=== PATIENT | male | born 1935 | race Caucasian/White ===

== ENCOUNTER 2016-10-28 20:22 | Emergency (ER) | payer MEDICARE, BC ==
[~2016-10-28 20:22] MED LIST: ACETAMINOPHEN1 EAC1 PO; ACETAMINOPHEN500 M2 PO; ALDACTONE25 M1 PO; ALEVE PM CAPLE1 EACH PO; AMOXICILLIN500 M1 PO; ARTHROTEC 75 MG1 TAB PO; ARTHROTEC PO; ASPIRIN EC81 MG PO; ASPIRIN81 M1 PO; B COMPLEX WITH1 EAC2 PO; CALCIUM 600 +1 EAC5 PO; CALCIUM500 M3 PO; CALCIUM600 MG PO; CALTRATE 600 +1 EAC2 PO; CELEBREX200 M1 PO; CHOLECALCIFEROL1 GM PO; COREG25 M1 PO; COREG25 MG PO; COZAAR100 M1 PO; CPAP; DAILY MULTIVIT1 EAC5 PO; ELIQUIS2.5 M1 PO; FENOFIBRATE PO; FENOFIBRATE67 MG PO; FUROSEMIDE20 M1 PO; FUROSEMIDE40 M1 PO; FUROSEMIDE40 M2 PO; GAS RELIEF125 M4 PO; GLYCOTROL PO; HYZAAR 100-25 T1 TAB PO; HYZAAR 100-251 EACH PO; KLOR-CON 1010 ME1 PO; LASIX20 M1 PO; LASIX40 M1 PO; LEVOTHYROXINE112 MC3 PO; LEVOTHYROXINE50 MC3 PO; LEVOXYL50 MCG PO; MELATONIN PO; MELATONIN1 M2 PO; MILK OF MAGNESIA PO; NEURONTIN100 M1 PO; NORCO 5-325 TA1 EACH PO; NORCO 5/325 TAB1 TAB PO; OMEPRAZOLE20 M2 PO; OMEPRAZOLE20 M3 PO; OXYCODONE HCL5 M1 PO; PAIN PUMP; POTASSIUM CHLO10 ME2 PO; POTASSIUM CHLO10 MEQ PO; POTASSIUM CHLO20 ME3 PO; PRIALT; ROXICODONE5 M2 PO; SENNA PLUS TAB1 EAC1 PO; SENOKOT-S TABL1 EACH PO; SENOKOT-S TABLE1 TAB PO; SIMVASTATIN40 M1 PO; SIMVASTATIN40 MG PO; TOPROL XL25 M1 PO; TORSEMIDE100 M1 PO; TUMS ULTRA400 MG PO; TUMS500 M1 PO; TYLENOL EXTRA500 M1 PO; TYLENOL PM EX-1 EAC4 PO; TYLENOL TA325 MG/TAB PO; TYLENOL325 M2 PO; ULTRAM50 M1 PO; VITAMIN B-1100 M3 PO; VITAMIN B-12500 MC5 SL; VITAMIN D32000 UNI2 PO; XARELTO10 MG PO
[2016-10-28 21:48] LABS: BASO % 0.2 % (0-2); EOS % 3.5 % (0-7); EOSINOPHIL ABSOLUTE COUNT 0.2 tho/cmm (0.0-0.7); HCT-HEMATOCRIT 36.5 % (36.0-53.5); HGB-HEMOGLOBIN 11.8 gm/dl (13.5-17.0); LYMPH % 19.2 % (20-45); MCH (MEAN CORPUSCULAR HGB) 26.1 pg (28.0-32.0); MCHC MEAN CORPUSCULAR HGB CONC 32.3 % (32.0-36.0); MCV (MEAN CELL VOLUME) 80.8 fl (82.0-96.0); MEAN PLATELET VOLUME 9.5 cmc (9.4-12.4); MONO % 10.5 % (0-12); MONOCYTE ABSOLUTE COUNT 0.6 tho/cmm (0.0-1.2); NEUTROPHIL ABSOLUTE COUNT 3.6 tho/cmm (1.6-8.0); NEUTROPHIL-AUTOMATED 3.6 tho/cmm (1.6-8.0); NEUTROPHILS % 66.6 % (40-80); PLATELET COUNT 147 tho/cmm (150-450); RED BLOOD COUNT 4.52 mil/cmm (4.40-5.70); RED CELL DISTRIBUTION WIDTH 15.9 % (12.4-16.4); WHITE BLOOD COUNT 5.4 tho/cmm (4.0-10.0)
[2016-10-28 22:00] LABS: ANION GAP 13 mmol/L (0-20); BLOOD UREA NITROGEN 38 mg/dl (6-24); C-REACTIVE PROTEIN 2.4 mg/dl (0-0.9); CALCIUM 9.1 mg/dl (8.5-10.5); CARBON DIOXIDE-VENOUS 28 mmol/L (22-32); CHLORIDE 100 mmol/l (96-110); CREATININE 1.93 mg/dl (0.60-1.30); GLUCOSE 139 mg/dL (70-110); POTASSIUM 3.8 mmol/L (3.7-5.1); SODIUM 137 mmol/L (135-145); eGFR VALUE FOR BLACK 37 mL/Min
[2016-10-28 22:10] LABS: ESR-ERYTHROCYTE SED RATE 31 mm/hr (0-20)
[2016-10-28] MEDS ORDERED: VIBRAMYCIN100 M1 PO (23:27)
[2016-11-16] MEDS ORDERED: ENTRESTO 24 MG1 EACH PO (16:20)
[2016-11-16] MEDS ORDERED: EX LAX MAXIMUM PO (16:21)
[2016-11-16] MEDS ORDERED: FENOFIBRATE54 M1 PO (16:22)
[2016-11-16] MEDS ORDERED: GAS-X125 M2 PO (16:22)
[2016-11-16] MEDS ORDERED: LYRICA50 MG/CAP (16:23)
[2016-11-16] MEDS ORDERED: TOPROL XL25 M1 PO (16:23)
[2016-11-16] MEDS ORDERED: OMEPRAZOLE20 M3 PO (16:24)
[2016-11-16] MEDS ORDERED: PRIALT IT (16:27)
[2016-11-16] MEDS ORDERED: DEMADEX20 M1 PO (16:28)
[2016-11-16] MEDS ORDERED: TIROSINT112 MC1 PO (16:28)
[2016-11-16] MEDS ORDERED: TYLENOL EXTRA500 M1 PO (16:29)
[2016-11-16] MEDS ORDERED: TRAMADOL HCL50 M2 PO (16:30)
[2016-11-16] MEDS ORDERED: TYLENOL PM EX-1 EAC4 PO (16:31)
[2016-11-16] MEDS ORDERED: DIPHENHYDRAMINE50 M2 PO (16:32)
[2016-11-16] MEDS ORDERED: VITAMIN B-1100 M3 PO (16:33)
[2016-11-16] MEDS ORDERED: VITAMIN B-125000 MC2 SL (16:33)
[2016-11-16] MEDS ORDERED: VITAMIN D32000 UNI3 PO (16:33)
[2016-11-16] MEDS ORDERED: DOXYCYCLINE HY100 M3 PO (16:38)
[2016-11-16] MEDS ORDERED: ALLOPURINOL100 M1 PO (17:14)
[2016-12-23] MEDS ORDERED: LYRICA (10:51)
[2016-12-23] MEDS ORDERED: ZOCOR40 M1 PO (16:01)
[2016-12-25] MEDS ORDERED: CIPRO500 M2 PO (14:37)
[2016-12-25] MEDS ORDERED: FLAGYL500 M1 PO (14:38)
[2017-01-25] MEDS ORDERED: ENTRESTO 24 MG1 EACH PO (17:37)
[2017-02-13] MEDS ORDERED: AUGMENTIN 875-1 EAC2 PO ×2 (13:47→14:26)
[2017-02-13] MEDS ORDERED: MIRALAX17 G2 PO ×2 (13:48→14:27)
== END 2016-10-29 00:05 ==
LOC: EDMED 20:22
PROVIDERS: Emergency Medicine
DX: L03.116 Cellulitis of left lower limb (principal); I50.9 Heart failure, unspecified; I25.10 Atherosclerotic heart disease of native coronary artery without angina pectoris; Z85.46 Personal history of malignant neoplasm of prostate; M10.9 Gout, unspecified; N18.9 Chronic kidney disease, unspecified; Z90.89 Acquired absence of other organs; Z95.0 Presence of cardiac pacemaker; Z79.890 Hormone replacement therapy; Z79.899 Other long term (current) drug therapy; Z79.82 Long term (current) use of aspirin

== ENCOUNTER 2016-11-20 11:52 | Inpatient (IN) | payer MEDICARE, BC ==
[~2016-11-20 11:52] MED LIST changes: +ALLOPURINOL100 M1 PO; +DEMADEX20 M1 PO; +DIPHENHYDRAMINE50 M2 PO; +DOXYCYCLINE HY100 M3 PO; +ENTRESTO 24 MG1 EACH PO; +EX LAX MAXIMUM PO; +FENOFIBRATE54 M1 PO; +GAS-X125 M2 PO; +LYRICA50 MG/CAP; +PRIALT IT; +TIROSINT112 MC1 PO; +TRAMADOL HCL50 M2 PO; +VIBRAMYCIN100 M1 PO; +VITAMIN B-125000 MC2 SL; +VITAMIN D32000 UNI3 PO
[2016-11-21 06:12] LABS: INR 1.1 INR (0.9-1.1); PROTHROMBIN TIME 13.1 SECONDS (9.0-13.6)
[2016-11-21 06:13] LABS: BASO % 0.1 % (0-2); HCT-HEMATOCRIT 30.6 % (36.0-53.5); HGB-HEMOGLOBIN 9.7 gm/dl (13.5-17.0); IMMATURE GRANULOCYTES ABSOLUTE 0.02 tho/cmm (0-0.03); IMMATURE GRANULOCYTES PERCENT 0.2 % (0-0.3); LYMPH % 6.1 % (20-45); LYMPH ABSOLUTE COUNT 0.6 tho/cmm (0.8-4.5); MCH (MEAN CORPUSCULAR HGB) 25.7 pg (28.0-32.0); MCHC MEAN CORPUSCULAR HGB CONC 31.7 % (32.0-36.0); MEAN PLATELET VOLUME 9.8 cmc (9.4-12.4); MONO % 7.5 % (0-12); MONOCYTE ABSOLUTE COUNT 0.7 tho/cmm (0.0-1.2); NEUTROPHILS % 86.1 % (40-80); PLATELET COUNT 126 tho/cmm (150-450); RED BLOOD COUNT 3.78 mil/cmm (4.40-5.70); RED CELL DISTRIBUTION WIDTH 15.9 % (12.4-16.4); WHITE BLOOD COUNT 9.3 tho/cmm (4.0-10.0)
[2016-11-21 06:16] LABS: ANION GAP 11 mmol/L (0-20); BLOOD UREA NITROGEN 23 mg/dl (6-24); CALCIUM 8.3 mg/dl (8.5-10.5); CARBON DIOXIDE-VENOUS 28 mmol/L (22-32); CHLORIDE 103 mmol/l (96-110); CREATININE 1.29 mg/dl (0.60-1.30); GLUCOSE 114 mg/dL (70-110); MAGNESIUM 2.1 mg/dl (1.8-2.6); PHOSPHOROUS 3.7 mg/dl (2.5-4.9); POTASSIUM 4.3 mmol/L (3.7-5.1); SODIUM 138 mmol/L (135-145); eGFR VALUE FOR BLACK 61 mL/Min
[2016-11-22 04:44] LABS: BASO % 0.1 % (0-2); EOS % 3.6 % (0-7); EOSINOPHIL ABSOLUTE COUNT 0.3 tho/cmm (0.0-0.7); HCT-HEMATOCRIT 30.7 % (36.0-53.5); HGB-HEMOGLOBIN 9.7 gm/dl (13.5-17.0); IMMATURE GRANULOCYTES ABSOLUTE 0.02 tho/cmm (0-0.03); IMMATURE GRANULOCYTES PERCENT 0.3 % (0-0.3); LYMPH % 12.2 % (20-45); LYMPH ABSOLUTE COUNT 0.9 tho/cmm (0.8-4.5); MCH (MEAN CORPUSCULAR HGB) 25.9 pg (28.0-32.0); MCHC MEAN CORPUSCULAR HGB CONC 31.6 % (32.0-36.0); MCV (MEAN CELL VOLUME) 81.9 fl (82.0-96.0); MEAN PLATELET VOLUME 9.3 cmc (9.4-12.4); MONO % 12.6 % (0-12); NEUTROPHIL ABSOLUTE COUNT 5.4 tho/cmm (1.6-8.0); NEUTROPHIL-AUTOMATED 5.4 tho/cmm (1.6-8.0); NEUTROPHILS % 71.2 % (40-80); PLATELET COUNT 124 tho/cmm (150-450); RED BLOOD COUNT 3.75 mil/cmm (4.40-5.70); RED CELL DISTRIBUTION WIDTH 16.2 % (12.4-16.4); WHITE BLOOD COUNT 7.6 tho/cmm (4.0-10.0)
[2016-11-22 04:54] LABS: ANION GAP 10 mmol/L (0-20); BLOOD UREA NITROGEN 30 mg/dl (6-24); CALCIUM 8.4 mg/dl (8.5-10.5); CARBON DIOXIDE-VENOUS 31 mmol/L (22-32); CHLORIDE 99 mmol/l (96-110); CREATININE 1.76 mg/dl (0.60-1.30); GLUCOSE 113 mg/dL (70-110); POTASSIUM 3.9 mmol/L (3.7-5.1); SODIUM 136 mmol/L (135-145); eGFR VALUE FOR BLACK 42 mL/Min
[2016-11-22] MEDS ORDERED: ASPIRIN81 M1 PO (14:13)
[2016-11-22] MEDS ORDERED: OXYCODONE HCL5 M1 PO (14:15)
[2016-11-22] MEDS ORDERED: ULTRAM50 M1 PO (14:17)
[2016-11-22] MEDS ORDERED: TYLENOL325 M2 PO (14:19)
[2016-11-22] MEDS ORDERED: MOBIC7.5 M2 PO (14:27)
[2016-12-23] MEDS ORDERED: LYRICA (10:51)
[2016-12-23] MEDS ORDERED: ZOCOR40 M1 PO (16:01)
[2016-12-25] MEDS ORDERED: CIPRO500 M2 PO (14:37)
[2016-12-25] MEDS ORDERED: FLAGYL500 M1 PO (14:38)
[2017-01-25] MEDS ORDERED: ENTRESTO 24 MG1 EACH PO (17:37)
[2017-02-13] MEDS ORDERED: AUGMENTIN 875-1 EAC2 PO ×2 (13:47→14:26)
[2017-02-13] MEDS ORDERED: MIRALAX17 G2 PO ×2 (13:48→14:27)
== END 2016-11-22 15:40 | disposition home health service (06) | DRG 467 ==
LOC: SHSB 11:52 → ORE 13:57 → PACU 16:31 → 5EA 17:50
PROVIDERS: Internal Medicine; ADMIT Orthopaedic Surgery Foot and Ankle Surgery
PROC: 0SRD0J9 Replacement of Left Knee Joint with Synthetic Substitute, Cemented, Open Approach (ICD-10-PCS; principal; 2016-11-20)
PROC: 0SPD0JZ Removal of Synthetic Substitute from Left Knee Joint, Open Approach (ICD-10-PCS; 2016-11-20)
PROC: 5A09357 Assistance with Respiratory Ventilation, Less than 24 Consecutive Hours, Continuous Positive Airway Pressure (ICD-10-PCS; 2016-11-20)
DX: T84.033A Mechanical loosening of internal left knee prosthetic joint, initial encounter (principal); I13.0 Hypertensive heart and chronic kidney disease with heart failure and stage 1 through stage 4 chronic kidney disease, or unspecified chronic kidney disease; I50.9 Heart failure, unspecified; I42.9 Cardiomyopathy, unspecified; Z96.651 Presence of right artificial knee joint; M51.36 Other intervertebral disc degeneration, lumbar region; I25.2 Old myocardial infarction; M19.041 Primary osteoarthritis, right hand; E03.9 Hypothyroidism, unspecified; E78.5 Hyperlipidemia, unspecified; N40.0 Benign prostatic hyperplasia without lower urinary tract symptoms; E55.9 Vitamin D deficiency, unspecified; N18.3 Chronic kidney disease, stage 3 (moderate); H91.90 Unspecified hearing loss, unspecified ear; Z86.12 Personal history of poliomyelitis; Z85.46 Personal history of malignant neoplasm of prostate; Z79.82 Long term (current) use of aspirin
CPT/HCPCS: C1713; C1776; J0171; J0690; J1885; J2270; J2795; J3010; J3370